=== PATIENT | male | born 2005 | race Caucasian/White ===

== ENCOUNTER 2024-05-05 13:43 | Outpatient (CLI) | payer OTHER ==
--- NOTE | 2024-05-09 20:45 | XRAY Report ---
PROCEDURE: Foot 3+V LT INDICATIONS: CONTUSION OF THE LEFT FOOT TECHNIQUE: 3 views of the foot were acquired. COMPARISON: None. FINDINGS: Bones: No fractures or dislocations. No suspicious bony lesions. Soft tissues: No tibiotalar joint effusion. Achilles tendon appears normal. IMPRESSION: No acute bony abnormality. Reviewed by: Jewel Tinoco MD on 05/05/2024 4:43 PM PDT Approved by: Jewel Tinoco MD on 05/05/2024 4:43 PM PDT Station ID: [id number]
== END 2024-05-16 13:44 | disposition home or self-care (01) ==
LOC: DI.N 13:43
PROVIDERS: ATTEND Physician Assistant Medical
DX: S90.32XA Contusion of left foot, initial encounter (principal)